=== PATIENT | female | born 2000 | race Caucasian/White ===

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

== ENCOUNTER 2019-06-09 13:05 | Emergency (ER) | payer BC, OTHER ==
[2019-06-09 13:31] VITALS: BP 126/84
[2019-06-09] MEDS ORDERED: Ibuprofen TAB* 600 MG PO ONE (13:47)
--- NOTE | 2019-06-09 13:47 | UC ---
Lower Extremity/Ankle HPI - HPI Summary HPI Summary: 18 y/o female presents to the urgent care c/o left foot pain w/ a bruise radiating to the left ankle s/p injury about 1 week ago. Pt thinks she broke her left foot, she has been ambulating. There is a bump on her foot, but the swelling is better. She has numbness and tingling in her toe. Pain w/ ambulation is 7/10. She took Ibuprofen PO 400mg yesterday and applied ice, but nothing today. Denies Hx of previous injury to left foot. Pt denies fever, calf pain, SOB, chest pain, abdominal pain, N/V/D. Pt is taking Acutane and her City Supervisor did a test this morning which was negative. 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 of Onset/Duration: Sudden Onset, Lasting Weeks - 1 week, Still Present, Worse Since - yesterday Severity Initially: Moderate Severity Currently: Moderate Pain Intensity: 7 - walking Pain Scale Used: 0-10 Numeric Aggravating Factor(s): Standing, Ambulation Alleviating Factor(s): Rest, Elevation, Ice, OTC Meds Able to Bear Weight: Yes - Risk Factors Gout Risk Factors: Negative DVT Risk Factors: Negative Septic Arthritis Risk Factor: Negative - Allergies/Home Medications Allergies/Adverse Reactions: Allergies Allergy/AdvReac Type Severity Reaction Status Date / Time No Known Allergies Allergy Verified 06/09/19 13:31 Home Medications: Home Medications Acutane 1 tab PO DAILY 06/09/19 [History Confirmed 06/09/19] Cholecalciferol (Vitamin D3) [Vitamin D3] 1 tab PO DAILY 06/09/19 [History Confirmed 06/09/19] Etonogest/Eth.estradiol (Nf) [Nuvaring Vaginal Ring] 1 unit VAGINAL ONCE [History Confirmed 06/09/19] PMH/Surg Hx/FS Hx/Imm Hx Previously Healthy: Yes - Pt denies PMHX Other History Of: Negative For: Anticoagulant Therapy - Surgical History Surgical History: Yes Surgery Procedure, Year, and Place: RIGHT OVARIAN CYST DRAINAGE - Family History Known Family History: Positive: Hypertension, Diabetes, Other - breast CA - Social History Occupation: Student Lives: With Family Alcohol Use: Occasionally Substance Use Type: None Smoking Status (MU): Never Smoked Tobacco Review of Systems All Other Systems Reviewed And Are Negative: Yes Constitutional: Positive: Negative Skin: Positive: Bruising - medial aspect of left foot Eyes: Positive: Negative ENT: Positive: Negative Respiratory: Positive: Negative Cardiovascular: Positive: Negative Gastrointestinal: Positive: Negative Genitourinary: Positive: Negative Motor: Positive: Negative Neurovascular: Positive: Negative Musculoskeletal: Positive: Decreased ROM - left ankle and foot, Other: - left foot pain radiating to left ankle s/p injury Neurological: Positive: Negative Psychological: Positive: Negative Is Patient Immunocompromised?: No Physical Exam - Summary Physical Exam Summary: Vital Signs Reviewed: Yes General: well developed, well nourished female adolescent, sitting in the examining table w/o any apparent distress Eyes: Positive: Conjunctiva Clear - PERRLA, EOMI, ENT: Positive: Normal ENT inspection, Hearing grossly normal, Pharynx normal, TMs normal Neck: Positive: Supple, Nontender, No Lymphadenopathy Respiratory: Positive: Chest non-tender, Lungs clear, Normal breath sounds, No respiratory distress Cardiovascular: Positive: RRR, No Murmur, Pulses Normal, Brisk Capillary Refill Abdomen Description: Positive: Nontender, No Organomegaly, Soft. Negative: CVA Tenderness (R), CVA Tenderness (L) Bowel Sounds: Positive: Present Musculoskeletal: - Ankle: Pt is able to bear weight and ambulate w/ limping. The L ankle is without obvious asymmetry or deformity when compared to the R ankle. Decreased ROM due to pain. Moderate swelling below medial malleolus and medial aspect of the left foot , with tenderness to palpation. No ecchymosis, mild bruising observed on the same area. NO Tenderness to palpation over the lateral malleolus , no swelling observed. Talar tilt test is negative for ligament laxity to valgus or varus stress. Negative anterior drawer. Peroneal nerve is intact with strong eversion and plantar flexion. Positive sensation over the LF foot and LF ankle, positive pulses, capillary refill intact. No bony step-off, No tenderness to palpation over toes, point tenderness over the medail aspect of mid foot, no tenderness of hindfoot, FROM of all left toes. Decrease plantar/dorsiflexion, inversion/eversion due to pain. Distal motor and neurovascular status are intact. Neurological Exam: Normal Psychological Exam: Normal Skin: warm and dry Triage Information Reviewed: Yes Vital Signs: Initial Vital Signs Temp 98.2 F 06/09/19 13:26 Pulse 78 06/09/19 13:26 Resp 18 06/09/19 13:26 BP 126/84 06/09/19 13:26 Pulse Ox 100 06/09/19 13:26 Lower Extremity Course/Dx - Course Course Of Treatment: 18 y/o female presents to the urgent care c/o left foot pain w/ a bruise radiating to the left ankle s/p injury about 1 week ago. Pt thinks she broke her left foot, she has been ambulating. There is a bump on her foot, but the swelling is better. She has numbness and tingling in her toe. Pain w/ ambulation is 7/10. She took Ibuprofen PO 400mg yesterday and applied ice, but nothing today. Denies Hx of previous injury to left foot. Pt denies fever, calf pain, SOB, chest pain, abdominal pain, N/V/D. Pt is taking Acutane and her City Supervisor did a test this morning which was negative. Hx obtained. LF ankle and foot X-ray ordered, Impression: No Soft tissue swelling, no acute fracture observed as per radiologist . Pt most likely with a LF foot/ ankle Sprain. Pt immobilized with gel ankle splint to , given crutches to avoid weight bearing, Advised to continue w/ Ibuprofen PO to decrease swelling and pain. First dose given today by nurse. Pt advised RICE, take Ibuprofen PO for pain and to f/u with PCP on orthopedic from sports medicine in 1 week if not improvement of symptoms for further treatment. Mother and Pt understood and agreed and left the clinic ambulating w/ the help of crutches. - Differential Dx/Diagnosis Differential Diagnosis/HQI/PQRI: Contusion, Dislocation, Fracture (Closed), Sprain, Strain, Tendonitis Provider Diagnosis: Injury of left foot, Sprain of left foot, Left ankle pain Discharge ED - Sign-Out/Discharge Documenting (check all that apply): Patient Departure - D/C home All imaging exams completed and their final reports reviewed: Yes - Discharge Plan Condition: Stable Disposition: HOME Patient Education Materials: Foot Sprain (ED) Forms: *Work Release Referrals: Gisela Fischer MD [Primary Care Provider] - 1 Week Additional Instructions: 1-Please continue taking Ibuprofen PO 600mg after meals as directed to alleviate pain and swelling. 2-Please apply ice, keep your ankle immobilized with the splint. Avoid weight bearing using the crutches. Elevate your ankle and foot 3- Please f/u with Orthopedic from sports medicine or your PCP in 1 week is not improvement of symptoms for further evaluation and treatment. - Billing Disposition and Condition Condition: STABLE Disposition: Home
== END 2019-06-09 14:50 | disposition home or self-care (01) ==
LOC: UCEAST 13:05
DX: M25.572 Pain in left ankle and joints of left foot (principal); S99.922A Unspecified injury of left foot, initial encounter; S93.602A Unspecified sprain of left foot, initial encounter; X58.XXXA Exposure to other specified factors, initial encounter; Y92.9 Unspecified place or not applicable
CPT/HCPCS: 99213; A9270-GY; G0463